=== PATIENT | female | born 1980 | race Caucasian/White ===

== ENCOUNTER 2019-06-23 10:09 | Emergency (ER) | payer OTHER, MEDICAID ==
[~2019-06-23] VITALS: Ht 160 cm; Wt 61.2 kg
[2019-06-23] MEDS ORDERED: MEDROLDOSEPACK PO (10:51)
[2019-06-23] MEDS ORDERED: NORCO 5-325 TA1 EAC1 PO (10:51)
[2019-06-23 12:10] VITALS: BP 108/58
== END 2019-06-23 12:12 | disposition home or self-care (01) ==
LOC: M.ERS 10:09
DX: M54.6 Pain in thoracic spine (principal)